=== PATIENT | female | born 1960 | race Caucasian/White ===

== ENCOUNTER → 2016-05-31 | Outpatient (CLI) | payer MEDICAID ==
--- NOTE | 2016-06-01 14:18 | MM ---
Reason for exam: screening (asymptomatic). Last mammogram was performed 1 year and 1 month ago. History: Patient is postmenopausal and has history of other cancer at age 52. , 2013. Physical Findings: A clinical breast exam by your physician is recommended on an annual basis and results should be correlated with mammographic findings. MG 3D Screening Mammo W/Cad Bilateral CC and MLO view(s) were taken. Prior study comparison: April 18, 2015, bilateral MG 3d screening mammo w/cad. April 02, 2014, bilateral MG screening mammo w CAD. January 12, 2013, bilateral digital screening mammo w/CAD. January 12, 2012, bilateral digital screening mammo w/CAD. The breast tissue is heterogeneously dense. This may lower the sensitivity of mammography. No significant changes when compared with prior studies. ASSESSMENT: Benign, BI-RAD 2 RECOMMENDATION: Routine screening mammogram of both breasts in 1 year.
== END | disposition home or self-care (01) ==
LOC: RADMAMWWP 06:59
PROVIDERS: ATTEND Obstetrics & Gynecology
DX: Z12.31 Encounter for screening mammogram for malignant neoplasm of breast (principal)
CPT/HCPCS: 77063; G0202

== ENCOUNTER → 2016-12-22 | Outpatient (CLI) | payer MEDICAID ==
--- NOTE | 2016-12-22 08:03 | CT ---
EXAMINATION TYPE: CT ChestAbdPelvis w con DATE OF EXAM: 12/22/2016 COMPARISON: 01/02/2016 HISTORY: uterine CA CT DLP: 535.7 mGycm CONTRAST: CT scan of the chest, abdomen and pelvis is performed with Oral Contrast and with IV Contrast, patien t injected with 100 mL of Omnipaque 300. CT Chest: LUNGS: The lungs are clear and free of infiltrate or atelectasis. No pulmonary nodule or mass is det ected. No pleural effusion or CT evidence of interstitial lung disease. MEDIASTINUM: Thoracic aorta is of normal caliber. The heart is not enlarged. No evidence for media stinal mass or adenopathy. HILAR STRUCTURES: No evidence for mass. No hilar adenopathy is appreciated. OTHER: No significant abnormality. CONTRAST CT ABDOMEN AND PELVIS FINDINGS: LIVER/GB: No calcified gallstones. Stable 2.3 cm hepatic cyst. No additional space-occupying hepati c lesions identified. Biliary tree is of normal caliber. PANCREAS: No inflammation. No distinct mass. SPLEEN: No splenic enlargement. No lesion seen. ADRENALS: No nodule. No thickening. KIDNEYS/BLADDER: No hydronephrosis. No nephrolithiasis. No disctinct renal mass. BOWEL: Normal appendix. Normal bowel caliber. No inflammation. GENITAL ORGANS: Hysterectomy changes noted. No evidence for adnexal mass. Vaginal cuff is unremarkabl e. LYMPH NODES: No greater than 1cm abdominal or pelvic lymph nodes are appreciated. AORTA: No significant abnormality. OSSEOUS STRUCTURES: Mild curvature lumbar spine and mild degenerative change noted. OTHER: No significant additional abnormality is seen. IMPRESSION: 1. Stable evaluation without evidence for metastatic disease or recurrent disease.
== END | disposition home or self-care (01) ==
LOC: RADCTMAIN 06:46
PROVIDERS: ATTEND Obstetrics & Gynecology
DX: Z08 Encounter for follow-up examination after completed treatment for malignant neoplasm (principal); Z85.42 Personal history of malignant neoplasm of other parts of uterus
CPT/HCPCS: 71260; 74177; Q9967

== ENCOUNTER → 2017-01-12 | Outpatient (CLI) | payer MEDICAID ==
--- NOTE | 2017-01-12 13:20 | BD ---
EXAMINATION TYPE: MG DEXA axial skeleton. DATE OF EXAM: 01/12/2017 COMPARISON: NONE CLINICAL HISTORY: 56-year-old female postmenopausal without HRT Height: 5 FT 6 IN Weight: 130 FRAX RISK QUESTIONS: Alcohol (3 or more units per day): NO Family History (Parent hip fracture): NO Glucocorticoids (More than 3mos): ON/OFF 2013 FOR 6 MONTHS DURING CHEMO (Ex: prednisone, prednisolone, methylprednisolone, dexamethasone, and hydrocortisone). History of Fracture in Adulthood: NO Secondary Osteoporosis: 1. Type 1 Diabetes: NO 2. Hyperthyroidism: NO 3. Menopause before 45: NO 4. Malnutrition: NO 5. Chronic liver disease: NO Rheumatoid Arthritis: NO Current Tobacco Use: NO RISK FACTORS HISTORY OF: Active: YES Postmenopausal woman: TOTAL HYST AGE 53 MEDICATIONS: Prednisone or other steroids: STEROID USE 6 MONTHS DURING CHEMO FOR UTERINE CANCER How Lon MONTHS Additional Medications: NONE Additional History: EXAM MEASUREMENTS: Bone mineral densitometry was performed using the [employer] System. Bone mineral density as measured about the Lumbar spine is: ----- L1-L4(G/cm2): 1.032 T Score Values are as follows: ----- L2: -2.0 ----- L3: -1.0 ----- L4: -0.7 ----- L1-L4: -1.2 BASELINE Bone mineral density about the R hip (g/cm2): 0.870 Bone mineral density about the L hip (g/cm2): 0.883 T Score values are as follows: -----R Neck: -1.2 -----L Neck: -1.1 -----R Total: -1.2 -----L Total: -0.8 BASELINE IMPRESSION: Osteopenia (T Score between -2.5 and -1 as noted by T score values in the lumbar spine and both hips) . There is slightly increased risk of fracture and the patient may be considered for treatment. Re-Scre en 2-5 years. NOTE: T-SCORE=SD OF THE YOUNG ADULT MEAN.
== END ==
LOC: RADBDWWP 12:38
PROVIDERS: ATTEND Internal Medicine
DX: M85.851 Other specified disorders of bone density and structure, right thigh (principal); M85.852 Other specified disorders of bone density and structure, left thigh; M85.88 Other specified disorders of bone density and structure, other site
CPT/HCPCS: 77080

== ENCOUNTER → 2017-06-30 | Outpatient (CLI) | payer MEDICAID ==
--- NOTE | 2017-06-30 14:03 | MM ---
Reason for exam: screening (asymptomatic). Last mammogram was performed 1 year and 1 month ago. History: Patient is postmenopausal and has history of other cancer at age 52. Chemotherapy, 2013. Physical Findings: A clinical breast exam by your physician is recommended on an annual basis and results should be correlated with mammographic findings. MG 3D Screening Mammo W/Cad Bilateral CC and MLO view(s) were taken. Prior study comparison: May 31, 2016, bilateral MG 3d screening mammo w/cad. April 18, 2015, bilateral MG 3d screening mammo w/cad. The breast tissue is heterogeneously dense. This may lower the sensitivity of mammography. There is chronic nodularity in the left breast. There is no discrete abnormality. ASSESSMENT: Benign, BI-RAD 2 RECOMMENDATION: Routine screening mammogram of both breasts in 1 year.
== END | disposition home or self-care (01) ==
LOC: RADMAMWWP 07:09
PROVIDERS: ATTEND Internal Medicine
DX: Z12.31 Encounter for screening mammogram for malignant neoplasm of breast (principal)
CPT/HCPCS: 77063; 77067

== ENCOUNTER → 2018-01-03 | Outpatient (CLI) | payer MEDICAID ==
--- NOTE | 2018-01-03 14:57 | CT ---
EXAMINATION TYPE: CT ChestAbdPelvis w con DATE OF EXAM: 01/03/2018 COMPARISON: 12/22/2016 and 01/02/2016 HISTORY: 57-year-old female follow up uterine cancer TECHNIQUE: Contiguous axial scanning of the chest, abdomen, and pelvis performed with IV Contrast, pa tient injected with 100 mL of Isovue 300. Delayed images through the kidneys were obtained. Coronal/s agittal reconstructions performed. CT DLP: 588 mGycm Automated exposure control for dose reduction was used. FINDINGS: Chest: Heart normal size with trace anterior pericardial fluid. 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 No thoracic lymphadenopathy by CT size criteria. Stable mild soft tissue density in the prevascular s pace and anterior mediastinum could represent some minimal thymic hyperplasia which is unchanged. No or pleural effusion. No suspicious pulmonary nodule or mass. ABDOMEN: Stable 6 mm hypervascular nodularity at the mid hepatic dome, axial image 51 probably tiny flash fill ing hemangioma. Stable 2.6 cm cyst posterior right liver lobe. Portal venous system is patent. No biliary ductal dilatation. Gallbladder, adrenal glands, kidneys, spleen with anterior splenule, and pancreas appear within roger l limits. Numerous nonenlarged and borderline sized mesenteric lymph nodes measuring up to 5 mm are unchanged. No increasing lymphadenopathy identified. No retroperitoneal lymphadenopathy seen. No dilated small bowel, free fluid, or free air. There is moderate stool burden without pericolonic inflammatory change. Pelvis: Bladder partially distended. Patient status post hysterectomy and bilateral salpingo-oophorectomy bor derline size 7 mm left external iliac chain lymph node axial image 104 is unchanged from 01/02/2016. N o abnormal fluid collection in the pelvis or otherwise any pelvic lymphadenopathy seen. Bones: Degenerative changes at the left SI joint with left L5 hemisacralization. No osseous destructive proc ess. IMPRESSION: 1. NUMEROUS SCATTERED BORDERLINE SIZED MESENTERIC LYMPH NODES ARE UNCHANGED DATING BACK TO AT LEAST 2 016 SUGGESTING A CHRONIC POSTINFLAMMATORY ETIOLOGY. 2. STATUS POST HYSTERECTOMY AND BILATERAL SALPINGO-OOPHORECTOMY. NO EVIDENCE FOR RECURRENT OR METAST ATIC DISEASE.
== END ==
LOC: RADXRMAIN 12:50
PROVIDERS: ATTEND Obstetrics & Gynecology
DX: C54.9 Malignant neoplasm of corpus uteri, unspecified (principal); Z90.710 Acquired absence of both cervix and uterus
CPT/HCPCS: 71260; 74177; Q9967

== ENCOUNTER → 2018-07-05 | Outpatient (CLI) | payer MEDICAID ==
--- NOTE | 2018-07-07 10:21 | MM ---
Reason for exam: screening (asymptomatic). Last mammogram was performed 1 year ago. History: Patient is postmenopausal and has history of other cancer at age 52. Chemotherapy, 2013. Physical Findings: A clinical breast exam by your physician is recommended on an annual basis and results should be correlated with mammographic findings. MG 3D Screening Mammo W/Cad Bilateral CC and MLO view(s) were taken. Prior study comparison: June 30, 2017, bilateral MG 3d screening mammo w/cad. May 31, 2016, bilateral MG 3d screening mammo w/cad. The breast tissue is heterogeneously dense. This may lower the sensitivity of mammography. There is chronic nodularity in the left breast. No significant changes when compared with prior studies. ASSESSMENT: Benign, BI-RAD 2 RECOMMENDATION: Routine screening mammogram of both breasts in 1 year.
== END | disposition home or self-care (01) ==
LOC: RADMAMWWP 07:00
PROVIDERS: ATTEND Internal Medicine
DX: Z12.31 Encounter for screening mammogram for malignant neoplasm of breast (principal)
CPT/HCPCS: 77063; 77067

== ENCOUNTER → 2019-03-15 | Outpatient (CLI) | payer MEDICAID ==
--- NOTE | 2019-03-15 11:14 | MR ---
EXAMINATION TYPE: MR shoulder RT wo con DATE OF EXAM: 03/15/2019 COMPARISON: None HISTORY: Pain TECHNIQUE: Multiplanar, multisequence imaging of the right shoulder is performed without contrast. FINDINGS: There is diffuse thickening and increased signal involving the distal 2.5 cm of the suprasp inatus tendon compatible severe tendinopathy. There is a near complete partial through thickness tear near the insertion measuring 1.6 cm. Subscapularis tendon has a normal appearance. Infraspinatus tendon demonstrates increased signal near its insertion compatible with tendinosis. Par tial tear of the anterior fibers not excluded. Bicipital tendon is well situated the bicipital groove. The biceps anchor and intracapsular portion o f the tendon are within normal limits. Hypertrophic arthropathy of the AC joint is seen with impingement of the supraspinatus tendon and mus monty. There is no evidence of glenohumeral joint effusion. Inferior glenohumeral ligament appears to be int act. No evidence of marrow edema or contusion. Bony labrum intact. IMPRESSION: 1. Impingement secondary to severe AC joint arthropathy and hypertrophic change resulting in near com plete through thickness tear of the distal margin and insertion of the supraspinatus tendon. 2. Tendinopathy insertion anterior fibers infraspinatus tendon. Partial intrasubstance tear not exclu ded.
== END | disposition home or self-care (01) ==
LOC: RADMRIMAIN 09:31
PROVIDERS: ATTEND Internal Medicine
DX: M75.121 Complete rotator cuff tear or rupture of right shoulder, not specified as traumatic (principal); M12.811 Other specific arthropathies, not elsewhere classified, right shoulder; M67.813 Other specified disorders of tendon, right shoulder

== ENCOUNTER → 2019-04-09 | Outpatient (CLI) | payer MEDICAID ==
--- NOTE | 2019-04-09 09:57 | BD ---
EXAMINATION TYPE: Axial Bone Density DATE OF EXAM: 04/09/2019 COMPARISON: 01.12.2017 CLINICAL HISTORY: M [age] Height: 66 Weight: 128.3 FRAX RISK QUESTIONS: Alcohol (3 or more units per day): no Family History (Parent hip fracture): no Glucocorticoids (More than 3mos): no (Ex: prednisone, prednisolone, methylprednisolone, dexamethasone, and hydrocortisone). History of Fracture in Adulthood: no Secondary Osteoporosis: 1. Type 1 Diabetes: no 2. Hyperthyroidism: no 3. Menopause before 45: no 4. Malnutrition: no 5. Chronic liver disease: no Rheumatoid Arthritis: no Current Tobacco Use: no RISK FACTORS HISTORY OF: Family History of Osteoporosis: no Active: no Diet low in dairy products/other sources of calcium: yes Postmenopausal woman: Lost more than 2 inches in height since high school: no MEDICATIONS: niacin, oxybutynin Additional History: EXAM MEASUREMENTS: Bone mineral densitometry was performed using the [employer] System. Bone mineral density as measured about the Lumbar spine is: ----- L1-L4(G/cm2): 1.001 T Score Values are as follows: ----- L2: -2.2 ----- L3: -1.0 ----- L4: -0.9 ----- L1-L4: -1.5 Bone mineral density has: decreased -1.3 % since study of: 01.12.2017 Bone mineral density about the R hip (g/cm2): 0.800 Bone mineral density about the L hip (g/cm2): 0.818 T Score values are as follows: -----R Neck: -1.7 -----L Neck: -1.6 -----R Total: -1.7 -----L Total: -1.4 Bone mineral density has: decreased -7.9 % since study of: 01.12.2017 IMPRESSION: Osteopenia (T Score between -2.5 and -1). There is slightly increased risk of fracture and the patient may be considered for treatment. Re-Screen 2-5 years. NOTE: T-SCORE=SD OF THE YOUNG ADULT MEAN.
== END | disposition home or self-care (01) ==
LOC: RADBDWWP 07:11
PROVIDERS: ATTEND Internal Medicine
DX: M85.80 Other specified disorders of bone density and structure, unspecified site (principal)
CPT/HCPCS: 77080

== ENCOUNTER → 2019-06-07 | Outpatient (CLI) | payer MEDICAID ==
--- NOTE | 2019-06-07 10:17 | CT ---
EXAMINATION TYPE: CT abdomen pelvis w con DATE OF EXAM: 06/07/2019 COMPARISON: 01/03/2018 HISTORY: 58-year-old female Follow up uterine cancer per patient TECHNIQUE: Contiguous axial scanning of the abdomen and pelvis following administration of 100 ml Iso myesha 300 IV contrast. Delayed images through the kidneys and coronal/sagittal reconstructions perform ed. CT DLP: 824 mGycm Automated exposure control for dose reduction was used. FINDINGS: LUNG BASES: No significant abnormality is seen. LIVER/GB: Stable 6 mm nodular area of hyperenhancement within the mid hepatic dome, probably vascular shunting or flash filling hemangioma, unchanged. Stable posterior right liver lobe cyst at 2.9 cm. Venous system is patent. No biliary ductal dilatati on. Tiny 4 mm dependent nodular density within the gallbladder, possible tiny gallstone. PANCREAS: No significant abnormality is seen. SPLEEN: No significant abnormality is seen. ADRENALS: No significant abnormality is seen. KIDNEYS: No significant abnormality is seen. LYMPH NODES: Redemonstrated scattered numerous 5 mm smaller mesenteric lymph nodes, unchanged. No new or enlarging lymph nodes are identified. REPRODUCTIVE ORGANS: Status post hysterectomy and bilateral salpingo-oophorectomies. No new pelvic ly mphadenopathy. No abnormal fluid collection the pelvis. BOWEL: Moderate stool right side of the abdomen. No pericolonic inflammatory change. No dilated smal l bowel, free fluid, or free air. BONES: Mild degenerative changes of the hips and left SI joint. Left L5 hemisacralization. Facet arth ropathy lower lumbar spine. IMPRESSION: Stable exam status post hysterectomy and salpingo-oophorectomy. No suspicious findings to suggest rec urrent or metastatic disease. Possible tiny 4 mm gallstone.
== END | disposition home or self-care (01) ==
LOC: RADCTMAIN 07:30
DX: C53.0 Malignant neoplasm of endocervix (principal); Z90.710 Acquired absence of both cervix and uterus; Z90.722 Acquired absence of ovaries, bilateral
CPT/HCPCS: 74177; Q9967

== ENCOUNTER → 2019-11-06 | Outpatient (CLI) | payer MEDICAID ==
--- NOTE | 2019-11-12 10:24 | MM ---
Reason for exam: screening (asymptomatic). Last mammogram was performed 1 year and 4 months ago. History: Patient is postmenopausal and has history of other cancer at age 52. Chemotherapy, 2013. Physical Findings: A clinical breast exam by your physician is recommended on an annual basis and results should be correlated with mammographic findings. MG 3D Screening Mammo W/Cad Bilateral CC and MLO view(s) were taken. Prior study comparison: July 05, 2018, bilateral MG 3d screening mammo w/cad. June 30, 2017, bilateral MG 3d screening mammo w/cad. The breast tissue is heterogeneously dense. This may lower the sensitivity of mammography. There is chronic nodularity in the left breast. No significant changes when compared with prior studies. ASSESSMENT: Benign, BI-RAD 2 RECOMMENDATION: Routine screening mammogram of both breasts in 1 year.
== END | disposition home or self-care (01) ==
LOC: RADMAMWWP 07:03
PROVIDERS: ATTEND Radiology Body Imaging
DX: Z12.31 Encounter for screening mammogram for malignant neoplasm of breast (principal)
CPT/HCPCS: 77063; 77067

== ENCOUNTER → 2019-12-21 | Outpatient (CLI) | payer MEDICAID ==
[2019-12-21 08:39] LABS: Basophils % (A) 1 %; Eosinophils # (A) 0.1 k/uL (0-0.7); Eosinophils % (A) 1 %; HCT 45.1 % (34.0-46.0); HGB 14.3 gm/dL (11.4-16.0); Lymphocytes % (A) 35 %; MCH 29.1 pg (25.0-35.0); MCHC 31.6 g/dL (31.0-37.0); Mean Platelet Volume 6.7; Monocytes # (A) 0.3 k/uL (0-1.0); Monocytes % (A) 5 %; Neutrophils # (A) 3.2 k/uL (1.3-7.7); Neutrophils % (A) 57 %; Platelet Count 237 k/uL (150-450); RBC 4.91 m/uL (3.80-5.40); RDW 12.3 % (11.5-15.5); WBC 5.7 k/uL (3.8-10.6)
[2019-12-21 12:07] LABS: Appearance,Urine Clear (Clear); Bilirubin,Urine Negative (Negative); Blood,Urine Negative (Negative); Color,Urine Light Yellow; Glucose,Urine (UA) Negative (Negative); Ketones,Urine Negative (Negative); Leukocyte Esterase,Urine Negative (Negative); Nitrite,Urine Negative (Negative); Protein,Urine Negative (Negative); Urobilinogen,Urine <2.0 mg/dL (<2.0)
[2019-12-21 18:32] LABS: African American GFR (CKD) 93.5 (60.0-200.0); Albumin 4.6 g/dL (3.80-4.90); Albumin/Globulin Ratio 2.19 (1.60-3.17); Anion Gap 8.8 mmol/L (4.00-12.00); BUN/Creat Ratio 23.75 Ratio (12.00-20.00); Calcium 9.8 mg/dL (8.7-10.3); Carbon Dioxide 29.2 mmol/L (21.6-31.8); Chol/HDL Ratio 3.15; Globulin 2.1 g/dL (1.6-3.3); LDL Cholesterol,Calculated 144.2 mg/dL (0.0-131.0); Magnesium 2.1 mg/dL (1.5-2.4); Non-African American GFR(CKD) 80.7 (60.0-200.0); Potassium 4.4 mmol/L (3.5-5.5); Total Bilirubin 0.9 mg/dL (0.3-1.2); Total Protein 6.7 g/dL (6.2-8.2); VLDL Calculation 14.8 mg/dL (5.00-40.00)
== END | disposition home or self-care (01) ==
LOC: LABWHC1 06:52
PROVIDERS: ATTEND Internal Medicine
DX: Z13.89 Encounter for screening for other disorder (principal); E78.5 Hyperlipidemia, unspecified; Z85.42 Personal history of malignant neoplasm of other parts of uterus; Z79.899 Other long term (current) drug therapy; M85.88 Other specified disorders of bone density and structure, other site
CPT/HCPCS: 36415; 80053; 80061; 81003; 82306; 83735; 84443; 85025

== ENCOUNTER → 2020-08-14 | Outpatient (CLI) | payer MEDICAID ==
--- NOTE | 2020-08-14 08:43 | CT ---
EXAMINATION TYPE: CT ChestAbdPelvis w con DATE OF EXAM: 08/14/2020 COMPARISON: Correlation made with prior CT scan of the abdomen both from 06/07/[address] scan of the chest from 01/03/2018. HISTORY: H/O scarcoma/uterine cancer CT DLP: 1295 mGycm Automated exposure control for dose reduction was used. Multiplanar coronal and sagittal reconstruction was performed. No nip imaging with 3-D coronal recons truction was performed. CONTRAST: CT scan of the chest, abdomen and pelvis is performed with Oral Contrast and with IV Contrast, patien t injected with 100ml mL of Isovue 300. FINDINGS: LUNGS: The lungs are grossly clear, there is no concerning parenchymal mass or nodule identified. T here is no pleural effusion or pneumothorax seen. The tracheobronchial tree is patent. MEDIASTINUM: There are no greater than 1 cm hilar or mediastinal lymph nodes. No pericardial effusi on is seen. OTHER: No additional significant abnormality is seen. LIVER/GB: No significant abnormality is appreciated. Previously described 2.8 cm low attenuating cyst in the right lobe liver is stable. PANCREAS: No significant abnormality is seen. SPLEEN: No significant abnormality is seen. ADRENALS: No significant abnormality is seen. KIDNEYS: No significant abnormality is seen. BOWEL: No significant abnormality is seen. REPRODUCTIVE ORGANS: Patient appears to have undergone hysterectomy. LYMPH NODES: 1.4 cm left para-aortic lymph node is seen, however, this is stable compared to prior ex amination from 2019. No new enlarged retroperitoneal lymph nodes are seen. OSSEOUS STRUCTURES: No significant abnormality is seen. OTHER: There is no bowel obstruction. IMPRESSION: 1.4 cm left para-aortic lymph node is stable compared to 2020. No new enlarged retroperit singer lymph nodes are seen. There is no metastasis to the lungs.
== END | disposition home or self-care (01) ==
LOC: RADCTMAIN 06:21
PROVIDERS: ATTEND Obstetrics & Gynecology
DX: C55 Malignant neoplasm of uterus, part unspecified (principal)
CPT/HCPCS: 71260; 74177; Q9967

== ENCOUNTER → 2020-11-13 | Outpatient (CLI) | payer MEDICAID ==
--- NOTE | 2020-11-17 10:00 | MM ---
Reason for exam: screening (asymptomatic). Last mammogram was performed 1 year ago. History: Patient is postmenopausal and has history of other cancer at age 52. Chemotherapy, 2014. Took hormonal contraceptives for 10 years. Physical Findings: A clinical breast exam by your physician is recommended on an annual basis and results should be correlated with mammographic findings. MG 3D Screening Mammo W/Cad Bilateral CC and MLO view(s) were taken. Prior study comparison: November 06, 2019, bilateral MG 3d screening mammo w/cad. July 05, 2018, bilateral MG 3d screening mammo w/cad. The breast tissue is heterogeneously dense. This may lower the sensitivity of mammography. No significant changes when compared with prior studies. ASSESSMENT: Benign, BI-RAD 2 RECOMMENDATION: Routine screening mammogram of both breasts in 1 year.
== END | disposition home or self-care (01) ==
LOC: RADMAMWWP 07:28
PROVIDERS: ATTEND Internal Medicine
DX: Z12.31 Encounter for screening mammogram for malignant neoplasm of breast (principal); Z78.0 Asymptomatic menopausal state
CPT/HCPCS: 77063; 77067

== ENCOUNTER 2021-01-16 06:56 | Day surgery (SDC) | payer MEDICAID ==
[2021-01-14 11:19] VITALS: BMI 20.9
[~2021-01-16 06:56] MED LIST: LACTATED RINGERS 1,000 ML IV SCH
[2021-01-16] MEDS ORDERED: IV FLUID CONTINUATION 900 ML IV ONE (08:15)
[2021-01-16] MEDS ORDERED: PROPOFOL 10 MG/ML 20 ML VIAL IV ONE (08:16)
--- NOTE | 2021-01-16 08:39 | P.PCN ---
Date of Procedure: 01/16/21 Procedure(s) Performed: BRIEF HISTORY: Patient is a 60-year-old pleasant female scheduled for an elective colonoscopy as a part of screening for colorectal neoplasia. PROCEDURE PERFORMED: Colonoscopy with snare polypectomy. PREOPERATIVE DIAGNOSIS: screening for colon cancer. IV sedation per Anesthesia. PROCEDURE: After informed consent was obtained, the patient, was brought into the endoscopy unit. IV sedation was administered by Anesthesia under continuous monitoring. Digital rectal examination was normal. Initially the Olympus CF-160 flexible video colonoscope was then inserted in the rectum, gradually advanced into the cecum without any difficulty. Careful examination was performed as the scope was gradually being withdrawn. Ileocecal valve and the appendiceal orifice were visualized and appeared normal. Prep was excellent. Mucosa of the cecum, ascending colon, transverse colon, descending colon, sigmoid colon, and rectum appeared normal. Oxygen rectum there was a 7 mm pedunculated polyp that was removed by snare polypectomy. Retroflexion was performed in the rectum and no lesions were seen. The patient tolerated the procedure well. IMPRESSION: 7 mm proximal rectal polyp status post-polypectomy Rest of the colon appeared normal RECOMMENDATIONS: Findings of this examination were discussed with the patient as well as a family. She was advised to follow with the biopsy results. If the biopsy results adenoma she can have a repeat colonoscopy in 5 years.
[2021-01-16 09:14] VITALS: RESP 16
[2021-01-16 09:17] VITALS: BP 122/70; PULSE 61
== END 2021-01-16 09:32 | disposition home or self-care (01) ==
LOC: ORWHC2ENDO 06:56
PROVIDERS: ATTEND Internal Medicine Gastroenterology
DX: Z12.11 Encounter for screening for malignant neoplasm of colon (principal); D12.8 Benign neoplasm of rectum
CPT/HCPCS: 45385; 88305; J2704

== ENCOUNTER → 2021-06-04 | Outpatient (CLI) | payer MEDICAID ==
--- NOTE | 2021-06-04 16:52 | BD ---
EXAMINATION TYPE: Axial Bone Density DATE OF EXAM: 06/04/2021 COMPARISON: NONE CLINICAL HISTORY: Height: 66 Weight: 128.2 FRAX RISK QUESTIONS: Alcohol (3 or more units per day): no Family History (Parent hip fracture): no Glucocorticoids (More than 3mos): no (Ex: prednisone, prednisolone, methylprednisolone, dexamethasone, and hydrocortisone). History of Fracture in Adulthood: no Secondary Osteoporosis: 1. Type 1 Diabetes: no 2. Hyperthyroidism: no 3. Menopause before 45: no 4. Malnutrition: no 5. Chronic liver disease: no Rheumatoid Arthritis: no Current Tobacco Use: no RISK FACTORS HISTORY OF: Surgery to Spine/Hip(right/left)/Wrist (right/left): no Family History of Osteoporosis: yes Active: yes Diet low in dairy products/other sources of calcium: no Postmenopausal woman: yes Lost more than 2 inches in height since high school: no MEDICATIONS: Additional History: cholesterol meds, bladder meds EXAM MEASUREMENTS: Bone mineral densitometry was performed using the [employer] System. Bone mineral density as measured about the Lumbar spine is: ----- L1-L4(G/cm2): 0.981 T Score Values are as follows: ----- L2: -2.2 ----- L3: -1.4 ----- L4: -0.9 ----- L1-L4: -0.7 Bone mineral density has: decreased -1.8 % since study of: 04.09.2019 Bone mineral density about the R hip (g/cm2): 0.772 Bone mineral density about the L hip (g/cm2): 0.771 T Score values are as follows: -----R Neck: -1.9 -----L Neck: -1.9 -----R Total: -1.9 -----L Total: -1.7 Bone mineral density has: decreased -3.0 % since study of: 04.09.2019 IMPRESSION: Osteopenia (T Score between -2.5 and -1). There is slightly increased risk of fracture and the patient may be considered for treatment. Re-Screen 2-5 years. NOTE: T-SCORE=SD OF THE YOUNG ADULT MEAN.
== END | disposition home or self-care (01) ==
LOC: RADBDWWP 07:19
PROVIDERS: ATTEND Internal Medicine
DX: M85.89 Other specified disorders of bone density and structure, multiple sites (principal)
CPT/HCPCS: 77080

== ENCOUNTER → 2021-11-16 | Outpatient (CLI) | payer MEDICAID ==
--- NOTE | 2021-11-17 10:47 | MM ---
Reason for Exam: Screening (asymptomatic). Last screening mammogram was performed 12 month(s) ago. Patient History: Menarche at age 13. First Full-Term at age 28. Left ovary removed at age 52. Right ovary removed at age 52. Hysterectomy at age 52. Postmenopausal. Other cancer, age 52. Patient used Hormonal Contraceptives for 10 years. 2013, Chemotherapy. Risk Values: Robina 5 year model risk: 1.6%. NCI Lifetime model risk: 7.9%. Prior Study Comparison: 07/05/2018 Bilateral Screening Mammogram, [facility]. 11/06/2019 Bilateral Screening Mammogram, [facility]. 11/13/2020 Bilateral Screening Mammogram, [facility]. Tissue Density: The breast tissue is heterogeneously dense. This may lower the sensitivity of mammography. Findings: Analyzed By CAD. There is no suspicious group of microcalcifications or new suspicious mass in either breast. Chronic nodularity left breast. Overall Assessment: Benign, BI-RAD 2 Management: Screening Mammogram of both breasts in 1 year. A clinical breast exam by your physician is recommended on an annual basis and results should be correlated with mammographic findings. Electronically signed and approved by: Pete Cross M.D. Radiologis
== END | disposition home or self-care (01) ==
LOC: RADMAMWWP 07:01
PROVIDERS: ATTEND Internal Medicine
DX: Z12.31 Encounter for screening mammogram for malignant neoplasm of breast (principal); Z78.0 Asymptomatic menopausal state
CPT/HCPCS: 77063; 77067

== ENCOUNTER → 2022-11-17 | Outpatient (CLI) | payer MEDICAID ==
--- NOTE | 2022-11-18 07:23 | MM ---
Reason for Exam: Screening (asymptomatic). Last screening mammogram was performed 12 month(s) ago. Patient History: Menarche at age 13. First Full-Term at age 28. Left ovary removed at age 52. Right ovary removed at age 52. Hysterectomy at age 52. Postmenopausal. Patient has history of breast feeding. Patient used Hormonal Contraceptives for 10 years. 2013, Chemotherapy. Risk Values: Robina 5 year model risk: 1.7%. NCI Lifetime model risk: 7.7%. Prior Study Comparison: 11/06/2019 Bilateral Screening Mammogram, [facility]. 11/13/2020 Bilateral Screening Mammogram, [facility]. 11/16/2021 Bilateral MG 3D screening mammo w/cad, [facility]. Tissue Density: There are scattered fibroglandular densities. Findings: Analyzed By CAD. There is no suspicious group of microcalcifications or new suspicious mass in either breast. Overall Assessment: Negative, BI-RAD 1 Management: Screening Mammogram of both breasts in [address] [facility] will attempt to contact patient to return for supplemental views and ultrasound if indicated. Patient should continue monthly self-breast exams. A clinical breast exam by your physician is recommended on an annual basis. This exam should not preclude additional follow-up of suspicious palpable abnormalities. Note on Robina scores and lifetime risk: 1. A Robina score greater than 3% is considered moderate risk. If this is the case, consider specialist referral to assess eligibility for a risk reducing agent. 2. If overall lifetime risk for the development of breast cancer is 20% or higher, the patient may qualify for future screening with alternating mammogram and breast MRI. Electronically signed and approved by: Anselmo Calloway DO
== END | disposition home or self-care (01) ==
LOC: RADMAMWWP 07:14
PROVIDERS: ATTEND Internal Medicine
DX: Z12.31 Encounter for screening mammogram for malignant neoplasm of breast (principal); Z78.0 Asymptomatic menopausal state
CPT/HCPCS: 77063; 77067

== ENCOUNTER → 2023-12-26 | Outpatient (CLI) | payer MEDICAID ==
--- NOTE | 2023-12-26 08:17 | MM ---
Reason for Exam: Screening (asymptomatic). Last mammogram was performed 1 year(s) and 1 month(s) ago. Patient History: Menarche at age 13. First Full-Term at age 28. Left ovary removed at age 52. Right ovary removed at age 52. Hysterectomy at age 52. Postmenopausal. Patient has history of breast feeding. Previous chemotherapy at age 53. Patient used Hormonal Contraceptives for 10 years. 2013, Chemotherapy. Risk Values: Robina 5 year model risk: 1.7%. NCI Lifetime model risk: 7.4%. Prior Study Comparison: 11/13/2020 Bilateral Screening Mammogram, [facility]. 11/16/2021 Bilateral MG 3D screening mammo w/cad, [facility]. 11/17/2022 Bilateral MG 3D screening mammo w/cad, [facility]. Tissue Density: There are scattered areas of fibroglandular density. Findings: Analyzed By CAD. The pattern is symmetrical. Chronic nodularity is upper outer left breast. No significant interval changes. No suspicious groups of microcalcifications, spiculated or lobular masses, architectural distortion or other secondary signs of malignancy are mammographically apparent. Overall Assessment: Benign, BI-RAD 2 Management: Screening Mammogram of both breasts in 1 year. A negative mammogram report should not preclude additional follow up of suspicious palpable abnormalities. Patient should continue monthly self breast exam. A clinical breast exam by your physician is recommended on an annual basis and results should be correlated with mammographic findings. Note on Robina scores and lifetime risk: 1. A Robina score greater than 3% is considered moderate risk. If this is the case, consider specialist referral to assess eligibility for a risk reducing agent. 2. If overall lifetime risk for the development of breast cancer is 20% or higher, the patient may qualify for future screening with alternating mammogram and breast MRI. [facility], , 12/26/2023 8:15 AM. Electronically signed and approved by: Douglas Gonzales D.O. Radiologis
--- NOTE | 2024-01-02 21:21 | BD ---
EXAMINATION TYPE: Axial Bone Density DATE OF EXAM: 12/26/2023 CLINICAL HISTORY: 63 years old Female. ICD-10 CODE: M85.80 OSTEOPENIA Height: 66 Weight: 130 FRAX RISK QUESTIONS: Alcohol (3 or more units per day): no Family History (Parent hip fracture): no Glucocorticoids (More than 3mos): no (Ex: prednisone, prednisolone, methylprednisolone, dexamethasone, and hydrocortisone). History of Fracture in Adulthood: no Secondary Osteoporosis: 1. Type 1 Diabetes: no 2. Hyperthyroidism: no 3. Menopause before 45: no 4. Malnutrition: no 5. Chronic liver disease: no Rheumatoid Arthritis: no Current Tobacco Use: no RISK FACTORS HISTORY OF: Surgery to Spine/Hip(right/left)/Wrist (right/left): no EXAM MEASUREMENTS: Bone mineral densitometry was performed using the [employer] System. Bone mineral density as measured about the Lumbar spine is: ----- L1-L4(G/cm2): 0.955 T Score Values are as follows: ----- L1: -3.0 ----- L2: -2.3 ----- L3: -1.4 ----- L4: -1.3 ----- L1-L4: -1.9 Z Score Values are as follows: ----- L1: -1.3 ----- L2: -0.7 ----- L3: 0.2 ----- L4: 0.3 ----- L1-L4: -0.2 Bone mineral density has: decreased -2.7 % since study of: 06.04.2021 Bone mineral density about the R hip (g/cm2): 0.743 Bone mineral density about the L hip (g/cm2): 0.797 T Score values are as follows: -----R Neck: -1.9 -----L Neck: -2.1 -----R Total: -2.1 -----L Total: -1.7 Z Score values are as follows: -----R Neck: -0.4 -----L Neck: -0.6 -----R Total: -0.9 -----L Total: -0.4 Bone mineral density has: decreased -1.8 % since study of: 3.3.2021 FRAX%s: The graph provided illustrates a 9.6 % chance for a major osteoporotic fx and a 1.5% chance f or the hips probability for fx in 10 years time. IMPRESSION: Osteopenia (T Score between -2.5 and -1). There is slightly increased risk of fracture and the patient may be considered for treatment. Re-Screen 2-5 years. NOTE: T-SCORE=SD OF THE YOUNG ADULT MEAN. [facility], , 01/02/2024 9:19 PM
== END | disposition home or self-care (01) ==
LOC: RADMAMWWP 07:12
PROVIDERS: ATTEND Obstetrics & Gynecology
DX: Z12.31 Encounter for screening mammogram for malignant neoplasm of breast (principal); Z08 Encounter for follow-up examination after completed treatment for malignant neoplasm; M85.89 Other specified disorders of bone density and structure, multiple sites; Z85.42 Personal history of malignant neoplasm of other parts of uterus; Z90.722 Acquired absence of ovaries, bilateral; Z78.0 Asymptomatic menopausal state; Z13.820 Encounter for screening for osteoporosis
CPT/HCPCS: 77063; 77067; 77080